=== PATIENT | male | born 1965 | race Caucasian/White ===

== ENCOUNTER → 2016-08-31 | Day surgery (SDC) | payer SELFPAY ==
[~2016-08-31] MED LIST: GLIMEPIRIDE2 MG PO; OMEPRAZOLE40 M1 PO; SIMVASTATIN40 MG PO
--- NOTE | ~2016-08-31 | OR ---
Unit #: [id number] #: [id number] Patient: ALEX KENT [id number] [address] [place], [place] [address] [id number] O MR#: [id number] NAME: ALEX KENT ROOM: Date of Procedure: 08/31/2016 Admission Date: 08/31/2016 Surgeon: Dawson Petersen III, M.D. : 1965 Attending Physician: Dawson Petersen III, M.D. Primary Care Physician: Dawson Smith M.D. OPERATIVE REPORT PREOPERATIVE DIAGNOSIS Obesity. POSTOPERATIVE DIAGNOSIS Obesity. PROCEDURE PERFORMED Endoscopic removal of intragastric balloon. ANESTHESIA General. SPECIMENS None. COMPLICATIONS None apparent. INDICATIONS FOR PROCEDURE This is a 51-year-old gentleman who has been extremely successful with the [employer] intragastric balloon. He has lost 35 pounds in 6 months. He is here today for removal. DESCRIPTION OF PROCEDURE After consent was obtained, the patient was brought to the operating room and placed in the supine position. General anesthetic was administered and then he was placed in the left lateral decubitus position. I passed an EGD scope easily into the esophagus under direct visualization. The esophagus appeared normal. The stomach was without any ulceration. The gastric balloon was in good position. I was able to burns the balloon with the aspiration catheter and I siphoned off all the fluid. Once the balloon was completely deflated, I grasped it with a grasper and removed it through the oropharynx without any difficulty. The anesthesia was reversed and was returned to the recovery room in stable condition. Dictated by... Dawson Petersen III, M.D. VCL/radha Unit #: [id number] #: [id number] Patient: ALEX KENT TD: 09/01/2016 08:31 JOB #: [id number] OPERATIVE REPORT Page 1 of 1 X Dawson Petersen III, MD PROCEDURE OPERATIVE NOTE
[2016-08-31 10:22] LABS: BLOOD UREA NITROGEN 15 mg/dL (9-23); CALCIUM SERUM 9.5 mg/dL (8.4-10.2); CARBON DIOXIDE 30 mmol/L (22-31); CHLORIDE 104 mmol/L (100-111); GLOM FILT RATE Estimated ABOVE60 mL/min (>60); GLUCOSE FASTING 98 mg/dL (70-110); POTASSIUM 3.7 mmol/L (3.5-5.1); SODIUM 140 mmol/L (135-145)
== END | disposition home or self-care (01) ==
LOC: CSUR 08:16
PROVIDERS: Surgery
DX: E66.9 Obesity, unspecified (principal); E11.9 Type 2 diabetes mellitus without complications; E78.5 Hyperlipidemia, unspecified; K21.9 Gastro-esophageal reflux disease without esophagitis; Z79.899 Other long term (current) drug therapy; Z90.49 Acquired absence of other specified parts of digestive tract; Z98.84 Bariatric surgery status; Z98.890 Other specified postprocedural states
CPT/HCPCS: 80048; 82947; J0330; J2250; J3010